=== PATIENT | male | born 1950 | race Hispanic/Latino ===

== ENCOUNTER → 2017-01-23 | Outpatient (CLI) | payer SELFPAY ==
--- NOTE | 2017-01-23 18:35 | Diagnostic Imaging Report ---
CLINICAL INDICATION: Patient struck head going down stairs and has a laceration. EXAM: Axial CT scan of the brain performed without IV contrast. COMPARISON: None. FINDINGS: There is no evidence of acute cerebral infarct, intracranial hemorrhage, or gross mass effect. There is normal gauthier-white matter distinction. The brain parenchymal volume appears appropriate for patient's age. There is no significant midline shift or herniation. There is no evidence of hydrocephalus. The basal cisterns are unremarkable. The visualized portions of the extracranial soft tissues show no significant abnormality. There is no skull fracture. The skull, extracranial soft tissue, and orbits are unremarkable. There is a moderate-sized mucous retention cyst in the left maxillary sinus. There is mild ethmoid sinus mucosal thickening. IMPRESSION: 1: Unremarkable CT scan of the brain for age. 2: Paranasal sinus disease. Dictated by: Dictated on workstation # [id number]
== END ==
LOC: RAD 17:44
PROVIDERS: ATTEND Nurse Practitioner Family
DX: S01.01XA Laceration without foreign body of scalp, initial encounter (principal); W22.8XXA Striking against or struck by other objects, initial encounter; Y99.8 Other external cause status
CPT/HCPCS: 70450